=== PATIENT | female | born 1940 | race Caucasian/White ===

== ENCOUNTER → 2023-10-02 09:38 | Outpatient (REF) | payer OTHER, SELFPAY | LOC: RAD 09:38 | PROVIDERS: ATTENDING PHYSICIAN Physician Assistant; FAMILY PHYSICIAN Family Medicine | DX: I73.9 Peripheral vascular disease, unspecified (principal) | CPT/HCPCS: 93922; 93925; 93978 ==

== ENCOUNTER → 2024-04-08 09:46 | Outpatient (REF) | payer OTHER, SELFPAY | LOC: RAD 09:46 | PROVIDERS: ATTENDING PHYSICIAN Surgery Vascular Surgery; FAMILY PHYSICIAN Family Medicine | DX: I77.0 Arteriovenous fistula, acquired (principal); I73.9 Peripheral vascular disease, unspecified | CPT/HCPCS: 93922; 93925; 93978; 93990 ==

== ENCOUNTER 2024-04-29 06:07 | Day surgery (SDC) | payer OTHER, SELFPAY ==
[2024-04-29] VITALS (10 sets, daily range): BP systolic 16–144; BP diastolic 53–65; BMI 19.0
--- NOTE | 2024-04-29 07:09 | W.SUR.PREOP ---
Pre-Operative Surgical Note
-
I have examined this patient prior to the performance of the scheduled procedure.
The patient's condition is unchanged from the time of the current History and
Physical and the patient is able to undergo the scheduled procedure.
[2024-04-29 07:29] LABS: APTT 27.4 Sec (23.4-35.0); INR 0.93; PT 12.9 Sec (11.4-14.6)
[2024-04-29 07:45] LABS: Hematocrit 28.3 % (37.0-47.0); Hemoglobin 9.5 g/dL (12.0-16.0); Mean Corp Hgb Conc. 33.6 g/dL (33.0-37.0); Mean Corpuscular Hgb 33.7 pg (27.0-31.0); Mean Corpuscular Volume 100.4 fL (81.0-99.0); Red Blood Cell Count 2.82 10^6/uL (4.20-5.40); Red Cell Dist. Width 20.4 % (11.5-14.5); White Blood Cell Count 2.3 10^3/uL (4.8-10.8)
--- NOTE | 2024-04-29 08:29 | W.SUR.POST ---
Surgical Immediate Post Op
Note
Pre Op Diagnosis: ESRD with failing AVF
Post Op Diagnosis: ESRD with failing AVF
Procedure Performed: LUE fistulogram and venogram with angioplasty and stent outflow vein stenosis
Primary Surgeon: Willie Yee MD
Service Inspector: N/A
Anesthesia: MAC
Estimated Blood Loss: 2 ml
Fluids: See anesthesia flow sheet
Drains/Shunts: N/A
Specimens/Cultures: N/A
Doppler/Duplex/Angio (Y/N): Y
Complications: None
Operative Findings: Positive thrill in AVF
[2024-04-29 08:45] LABS: Blood Urea Nitrogen 19 mg/dl (7-17); Calcium 7.1 mg/dl (8.4-10.2); Carbon Dioxide 29 mmol/L (22-30); Chloride 105 mmol/L (98-107); Estimated Creatinine Clearance 13 ml/min; Glucose 78 mg/dl (70-99); Potassium 3.6 mmol/L (3.5-5.1); Sodium 141 mmol/L (135-145)
[2024-04-29 08:50] LABS: Platelet Count 103 10^3/uL (130-400)
[2024-04-29 08:51] LABS: Mean Platelet Volume 11.6 fL (7.4-10.4)
--- NOTE | 2024-04-29 08:53 | OR.RPT ---
Operative Report
Operative Report
PROCEDURE DATE: 04/29/2024
Preoperative diagnosis:
1. End-stage renal disease on hemodialysis.
2. Concern for failing fistula.
Postoperative diagnosis: Same
Procedure:
1. Duplex assisted cannulation of left upper extremity arteriovenous fistula.
2. Balloon angioplasty of outflow vein stenosis with 7 mm and then 8 mm angioplasty balloon.
3. Placement of covered stent ([place] Viabahn) 8 mm x 5 cm stent and outflow cephalic vein.
4. Balloon angioplasty of outflow vein with 9 mm angioplasty balloon.
5. Supervision and interpretation.
Surgeon: Joselito
Program Developer: None
Complications: None
Anesthesia: Local, sedation
Fluoroscopy:
6.2 min
8 mGy
2.44 Gy.cm2
Indications for procedure:
End-stage renal disease on hemodialysis. Concern for failing fistula. Risk/benefit/alternatives of fistulogram all fully discussed. Patient understood all wished to proceed.
Description of procedure:
Patient was identified, brought to the operating room. Placed on the table in the supine position. After the adequate administration of anesthesia, the patient was prepped and draped in the standard surgical fashion. A standard preoperative
timeout was undertaken and everybody was in agreement with the plan.
The left upper extremity cephalic outflow vein was punctured and a central facing direction in the distal upper arm/antecubital fossa with a micropuncture kit under direct duplex ultrasound guidance. A 5 Brazilian sheath was then advanced over a 0.035
inch wire. Fistulogram was obtained. This demonstrated patent fistula with some tortuosity in the outflow vein. 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 Beyond the 2 aneurysmal segments there was an area of stenosis that correlated to the
area of stenosis seen on duplex imaging. Beyond here the vein was somewhat tortuous with potential kinks or webs that may have resulted in moderate stenosis as well. Beyond here the vein continued on and there was no evidence of any central venous
stenosis on central venography. Compression of the fistula/fistulogram demonstrated patent arterial anastomosis with may be mild at most stenosis. At this point, I selectively cannulated the central venous system with a flopping on hydrophilic
wire and a glide catheter. I then exchanged for a ByteLightq wire. I then performed balloon angioplasty of the stenotic area with a 7 mm angioplasty balloon. Completion angiogram demonstrated still some residual stenosis. In addition I could see now
that there was more webbing in the adjacent segment slightly more centrally. Therefore I used a longer 8 mm angioplasty balloon after exchanging for a 6 Brazilian sheath. Completion angiogram now demonstrated some improvement but still some residual
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 Therefore I then quickly exchanged for a 7 Brazilian sheath and then a 0.018 inch wire. I then placed a [place] Viabahn 8 mm x 5
cm stent to cover that area. I post angioplastied this with an 8 mm balloon. Completion angiogram demonstrated excellent result with resolution of that area of stenosis and no further extravasation. The original stenosis just distal to the
aneurysmal area still appeared to be mild. (I definitely improved with angioplasty). However at this point I felt I would ballooned it with a larger balloon. I therefore then used a 9 mm angioplasty balloon. I used this to angioplasty the [place]
Viabahn stent first just to help better seated. I then used the same angioplasty balloon to angioplasty the residual mild stenosis just adjacent to the aneurysmal area. Completion angiogram now demonstrated a good result with a significant
improvement in the area of stenosis. In addition the stent seemed very nicely seated with excellent flow and no residual stenosis. At this point is very satisfied. The catheters and wires were withdrawn. A 4-0 Monocryl pursestring stitch was
placed around the sheath entry site and was tied down as the sheath was withdrawn. Manual pressure was also applied to the puncture site. Hemostasis was fully achieved. The patient tolerated procedure well. She had an excellent thrill in the
fistula upon completion.
== END 2024-04-29 09:45 | disposition home or self-care (01) ==
LOC: CATH 06:07
PROVIDERS: ATTENDING PHYSICIAN Surgery Vascular Surgery; FAMILY PHYSICIAN Family Medicine; OTHER PHYSICIAN Internal Medicine Cardiovascular Disease
DX: I12.0 Hypertensive chronic kidney disease with stage 5 chronic kidney disease or end stage renal disease (principal); T82.858D Stenosis of other vascular prosthetic devices, implants and grafts, subsequent encounter; Y83.2 Surgical operation with anastomosis, bypass or graft as the cause of abnormal reaction of the patient, or of later complication, without mention of misadventure at the time of the procedure; N18.6 End stage renal disease; Z99.2 Dependence on renal dialysis; Z79.82 Long term (current) use of aspirin; J44.9 Chronic obstructive pulmonary disease, unspecified; Z86.73 Personal history of transient ischemic attack (TIA), and cerebral infarction without residual deficits; Z87.891 Personal history of nicotine dependence
CPT/HCPCS: 36903; 80048; 85027; 85610; 85730; 86850; 86900; 86901; 93005; C1725; C1769; C1874; C1894; Q9967

== ENCOUNTER → 2024-09-28 09:47 | Outpatient (REF) | payer OTHER, SELFPAY | LOC: RAD 09:47 | PROVIDERS: ATTENDING PHYSICIAN Surgery Vascular Surgery; FAMILY PHYSICIAN Family Medicine | DX: I77.0 Arteriovenous fistula, acquired (principal); N18.6 End stage renal disease | CPT/HCPCS: 93990 ==

== ENCOUNTER 2024-10-14 06:11 | Day surgery (SDC) | payer OTHER, SELFPAY ==
[2024-10-14] VITALS (9 sets, daily range): BP systolic 17–130; BP diastolic 49–62; BMI 20.2
[2024-10-14] MEDS: NSS 500 IV (06:40)
[2024-10-14 07:10] LABS: INR 0.88; PT 12.5 Sec (11.4-14.6)
[2024-10-14 07:11] LABS: APTT 27.7 Sec (23.4-35.0)
[2024-10-14 07:16] LABS: Hematocrit 30.5 % (37.0-47.0); Hemoglobin 9.7 g/dL (12.0-16.0); Mean Corp Hgb Conc. 31.8 g/dL (33.0-37.0); Mean Corpuscular Hgb 33.7 pg (27.0-31.0); Mean Corpuscular Volume 105.9 fL (81.0-99.0); Mean Platelet Volume 11.8 fL (7.4-10.4); Platelet Count 123 10^3/uL (130-400); Red Blood Cell Count 2.88 10^6/uL (4.20-5.40); White Blood Cell Count 3.5 10^3/uL (4.8-10.8)
[2024-10-14 07:35] LABS: Blood Urea Nitrogen 27 mg/dl (7-17); Calcium 8.5 mg/dl (8.4-10.2); Carbon Dioxide 33 mmol/L (22-30); Chloride 95 mmol/L (98-107); Estimated Creatinine Clearance 8 ml/min; Glucose 84 mg/dl (70-99); Potassium 4.3 mmol/L (3.5-5.1); Sodium 139 mmol/L (135-145); eGFR 11.12
--- NOTE | 2024-10-14 08:30 | W.SUR.POST ---
Surgical Immediate Post Op
Note
Pre Op Diagnosis: End-stage renal disease
Post Op Diagnosis: Same
Procedure Performed: Left upper extremity fistulogram, balloon angioplasty and stent for stent edge stenosis
Primary Surgeon: Joselito
Anesthesia: Local and sedation
Estimated Blood Loss: Less than 2 cc
Fluids: See anesthesia flowsheet
Drains/Shunts: None
Specimens/Cultures: None
Doppler/Duplex/Angio (Y/N): Y
Complications: None
Operative Findings: Palpable thrill
--- NOTE | 2024-10-14 08:35 | OR.RPT ---
Operative Report
Operative Report
PROCEDURE DATE: 10/14/2024
Preoperative diagnosis:
1. End-stage renal disease on hemodialysis.
2. Prolonged bleeding after hemodialysis.
Postoperative diagnosis:[]
Procedure:
1. Duplex assisted cannulation of left upper extremity arteriovenous fistula.
2. Left upper extremity fistulogram and central venogram.
3. Balloon angioplasty of outflow vein stent edge stenosis with 7 mm angioplasty balloon.
4. Placement of [place] Viabahn overlapping stent 8 mm x 5 cm into pre-existing stent in outflow vein.
5. Supervision and interpretation.
Surgeon: Joselito
Inoculator: None
Complications: None
Anesthesia: Local, sedation
Fluoroscopy:
4.2 min
7 mGy
0.85 gy.cm2
Indications for procedure:
Prolonged bleeding after hemodialysis, concern for outflow vein stenosis. Risk/benefits/alternatives of fistulogram fully discussed. Patient understood and wished to proceed.
Description of procedure:
Patient was identified, brought to the operating room. Placed on the table in the supine position. After the adequate administration of anesthesia, the patient was prepped and draped in the standard surgical fashion. A standard preoperative
timeout was undertaken and everybody was in agreement with the plan.
The left upper extremity fistula outflow vein was punctured in the distal upper arm and a central facing direction using a micropuncture kit under direct duplex ultrasound guidance. A 5 [place] sheath was advanced over a 0.035 inch wire.
Fistulogram demonstrated patent fistula outflow vein and patent stent. However at the proximal edge (peripheral) there appeared to be a significant stenosis at the edge. The more proximal (central) outflow vein was tortuous but no significant
stenosis identified. Central venogram demonstrated no significant central venous stenosis. At this point I exchanged for a Storq wire, and give the patient 2000 needs of intravenous heparin. I performed balloon angioplasty of the stent edge
stenosis with a 7 mm x 4 cm angioplasty balloon. There was also an additional area slightly more proximally in the outflow segment that may have been mildly stenotic (there is slight opacity but no clear definitive stenosis). I ballooned that as
well. There is no waist in the balloon. Completion angiogram demonstrated no improvement in the edge stent stenosis. Therefore, I exchanged for a 7 [place] sheath and then a 0.014 inch wire. I then placed a [place] Viabahn 8 mm x 5 cm covered stent
into the pre-existing stent overlapping and covering the area of stenosis. This was postangioplasty with an 8 mm balloon. Completion angiogram now demonstrated excellent result. At this point I was very satisfied. Fistulogram with compression of
the outflow demonstrated patent arterial anastomosis. The proximal outflow vein may have had a mild to moderate stenosis in it (as noted potentially on ultrasound prior). However given excellent flow volumes and the patient's problem not being
accessed of the fistula but rather prolonged bleeding after hemodialysis, I did not feel this need to be addressed at this time. At this time the wires and catheters were all withdrawn. A 4-0 Monocryl pursestring stitch was placed around the
sheath entry site and was tied down as the sheath was withdrawn. Manual pressure was also gently applied. Hemostasis was fully achieved.
The patient tolerated procedure well.
== END 2024-10-14 10:00 | disposition home or self-care (01) ==
LOC: CATH 06:11
PROVIDERS: ATTENDING PHYSICIAN Surgery Vascular Surgery; OTHER PHYSICIAN Internal Medicine Cardiovascular Disease; PRIMARYCARE PHYSICIAN Family Medicine
DX: T82.838D Hemorrhage due to vascular prosthetic devices, implants and grafts, subsequent encounter (principal); Y83.2 Surgical operation with anastomosis, bypass or graft as the cause of abnormal reaction of the patient, or of later complication, without mention of misadventure at the time of the procedure; I12.0 Hypertensive chronic kidney disease with stage 5 chronic kidney disease or end stage renal disease; N18.6 End stage renal disease; Z99.2 Dependence on renal dialysis; Z87.891 Personal history of nicotine dependence; Z95.820 Peripheral vascular angioplasty status with implants and grafts; Z86.73 Personal history of transient ischemic attack (TIA), and cerebral infarction without residual deficits; Z95.1 Presence of aortocoronary bypass graft
CPT/HCPCS: 36903; 80048; 85027; 85610; 85730; 86850; 86900; 86901; C1725; C1769; C1874; C1894; Q9967